=== PATIENT | female | born 1955 | race African-American/Black ===

== ENCOUNTER → 2017-02-05 | Outpatient (CLI) | payer OTHER ==
[~2017-02-05] MED LIST: ALBUTEROL INHALATION; ALBUTEROL0.63 MG/3 IH; ALBUTEROL17 GM INH; ALBUTEROL20 ml INH; ALDACTONE25 MG PO; ALLERGY10 M2 PO; AMITRIPTYLINE H25 MG PO; AMLODIPINE BESYL5 MG PO; BETAMETHASONE D TOP; BETAMETHASONE D60 ML TOP; CLARITIN10 M2 PO; CLARITIN10 M3 DOB; COZAAR PO; DEMADEX PO; FISH OIL + VIT1 EACH PO; FISH OIL 1,0001 CAP PO; FISH OIL 1,0001 EAC1 PO; FLINTSTONES CO1 EACH PO; FLONASE ALLERG9.9 ML; FLONASE16 GM; FLOVENT DI50 MCG/DIS INH; GABAPENTIN300 MG PO; HYDROCODON-ACE1 EAC5 PO; HYDROCODONE/APA1 T16 PO; K-DUR10 MEQ PO; LASIX20 MG PO; LOSARTAN POTASS25 MG PO; LOSARTAN POTASS50 MG PO; MEDROL DOSEPAK4 MG PO; MOBIC15 MG PO; NAPROSYN500 MG PO; NAPROXEN PO; NAPROXEN SODIU550 MG PO; NEURONTIN100 MG PO; NORVASC10 MG PO; NORVASC2.5 MG PO; OMEPRAZOLE40 M1 PO; POTASSIUM CHLO10 MEQ; POTASSIUM CHLO10 MEQ PO; PROTONIX PO; PROVENTIL0.83 MG/ML INH; SALINE NOSE SPR45 M1; TIZANIDINE HCL4 M1 PO; TORSEMIDE10 MG PO; TUMS X-STR300 MG PO; VITAMIN B-121000 MC1 SL; VITAMIN D1000 UNI1 PO; VITAMIN D31000 UNI1 PO; VITAMIN D31000 UNIT PO
--- NOTE | ~2017-02-05 | CR59 ---
[facility] A Service of [facility] RADIOLOGY TEXT RESULTS PATIENT: MUNIR RAMIREZ LOCATION: [facility] : 57 UNIT #: [id number] AGE: [address]: Leslie Morales APRN SEX: F ORDER DR: [id number] [facility] [address] [place], [place] [address] [id number] O MR#: [id number] Acc #: [id number] NAME: MUNIR RAMIREZ. : 1955 SEX: F STUDY DATE/TIME: 02/05/2017 9:35 UNIT: [facility] ROOM: STUDY DESCRIPTION: CR Cervical Spine 5 View W Fle Attending Physician: Leslie Morales A.P.R.N. Referring Physician: Leslie Morales A.P.R.N. Ordering Physician: Leslie Morales A.P.R.N. Primary Care Physician: Desire Garza M.D. MEDICAL IMAGING REPORT This report is preliminary unless electronic signature is present EXAM Cervical spine series, 6 views, including lateral flexion and extension views. CLINICAL HISTORY Neck pain for 1 year. FINDINGS Slight loss of lordosis in neutral, and normal range of motion without abnormal motion. Extensive surgical clips from prior cervical surgery, but no prevertebral swelling. No acute abnormality. IMPRESSION Slight loss of lordosis but normal motion without abnormal motion, postsurgical change, no acute findings. Dictated by... Bridger Acosta M.D. THIS IS AN ELECTRONICALLY VERIFIED REPORT Bridger Acosta M.D. at 02/07/2017 1:24 PM TEV/wale TD: 02/05/2017 13:43 JOB #: [id number] MEDICAL IMAGING REPORT Page 1 of 1 COPY
--- NOTE | ~2017-02-05 | CR186 ---
[facility] A Service of [facility] & [facility] RADIOLOGY TEXT RESULTS PATIENT: MUNIR RAMIREZ LOCATION: [facility] : 57 UNIT #: [id number] AGE: [address]: Leslie Morales APRN SEX: F ORDER DR: [id number] [facility] [address] [place], [place] [address] [id number] O MR#: [id number] Acc #: [id number] NAME: MUNIR RAMIREZ. : 1955 SEX: F STUDY DATE/TIME: 02/05/2017 9:33 UNIT: [facility] ROOM: STUDY DESCRIPTION: CR Lumbar Spine W Bend Min 6 V Attending Physician: Leslie Morales A.P.R.N. Referring Physician: Leslie Morales A.P.R.N. Ordering Physician: Leslie Morales A.P.R.N. Primary Care Physician: Desire Garza M.D. MEDICAL IMAGING REPORT This report is preliminary unless electronic signature is present EXAM Lumbar spine series, 5 views, including lateral flexion and extension views. HISTORY Low back pain for 1 year. FINDINGS There is degenerative dextroscoliosis, and slight loss of lordosis, but no substantial vani- or retrolisthesis. There is very limited range of motion, but there is no abnormal motion in flexion or extension. IMPRESSION Degenerative change, including scoliosis. No fracture and no abnormal motion. Limited range of motion overall. Dictated by... Bridger Acosta M.D. THIS IS AN ELECTRONICALLY VERIFIED REPORT Bridger Acosta M.D. at 02/07/2017 1:24 PM DEIRDRE/leeann TD: 02/05/2017 13:43 JOB #: [id number] MEDICAL IMAGING REPORT Page 1 of 1 COPY
== END | disposition home or self-care (01) ==
LOC: CRAD 09:17
DX: M47.812 Spondylosis without myelopathy or radiculopathy, cervical region (principal); M51.36 Other intervertebral disc degeneration, lumbar region; M47.816 Spondylosis without myelopathy or radiculopathy, lumbar region; M41.9 Scoliosis, unspecified; Z98.890 Other specified postprocedural states
CPT/HCPCS: 72052; 72114

== ENCOUNTER → 2017-03-08 | Day surgery (SDC) | payer OTHER ==
--- NOTE | ~2017-03-08 | OR ---
Unit #: [id number] #: [id number] Patient: MUNIR RAMIREZ [id number] [address] [address] [id number] O MR#: [id number] NAME: MUNIR RAMIREZ. ROOM: Date of Procedure: 03/08/2017 Admission Date: 03/08/2017 Surgeon: Raf Vila M.D. : 1955 Attending Physician: Raf Vila M.D. Primary Care Physician: Desrie Garza M.D. OPERATIVE REPORT PROCEDURES PERFORMED Colonoscopy with snare polypectomy and hemoclip application. INDICATIONS FOR PROCEDURE A 61-year-old female with average risk for colorectal cancer, here for screening colonoscopy. MEDICATIONS Monitored anesthesia. POSTOPERATIVE FINDINGS 1. Cecal polyp about 1 cm flat, snared with hot snare polypectomy. Two hemoclips were placed on the wound. 2. Rest of the colonic mucosa was normal. 3. Internal hemorrhoids. PLAN We will recommend repeat colonoscopy in 3 years if adenomatous. DESCRIPTION OF PROCEDURE The patient was explained of the procedure, risks, and benefits along with the risks and benefits of anesthesia. She was brought to the endoscopy room. Propofol anesthesia was given. Rectal exam was done, which was normal. Colonoscope was lubricated, passed up the rectum, advanced under direct vision all the way to the cecum. Cecum was identified by ileocecal valve and appendiceal orifice. I then started to pull the scope out carefully looking. Polyp seen in cecum was snared. Two hemoclips were placed to ensure hemostasis. I then continued to pull the scope out. No other polyps or masses were seen. I retroflexed in the rectum, internal hemorrhoids noted. Gently, the scope was pulled out. She tolerated it well. Dictated by... Eros Stewart/myron TD: 03/08/2017 23:05 JOB #: [id number] Unit #: [id number] #: [id number] Patient: MUNIR RAMIREZ OPERATIVE REPORT Page 1 of 1 X Raf Vila MD PROCEDURE OPERATIVE NOTE
== END | disposition home or self-care (01) ==
LOC: COPS 08:59
DX: Z12.11 Encounter for screening for malignant neoplasm of colon (principal); D12.0 Benign neoplasm of cecum; K64.8 Other hemorrhoids; K21.9 Gastro-esophageal reflux disease without esophagitis; I10 Essential (primary) hypertension; J45.909 Unspecified asthma, uncomplicated; I89.0 Lymphedema, not elsewhere classified; M41.9 Scoliosis, unspecified; Z90.89 Acquired absence of other organs; Z79.899 Other long term (current) drug therapy; Z88.2 Allergy status to sulfonamides; Z88.5 Allergy status to narcotic agent; Z98.890 Other specified postprocedural states; Z79.1 Long term (current) use of non-steroidal anti-inflammatories (NSAID)
CPT/HCPCS: 88305; J2250